=== PATIENT | female | born 1965 | race Hispanic/Latino ===

== ENCOUNTER → 2025-05-13 | Day surgery (SDC) | payer OTHER ==
[~2025-05-13] MED LIST: ACTOS15 MG PO; DEXAMETHASONE SOD PHOS INJ 4 MG/ML SDV ONE; HYOSCYAMINE SULFATE 0.5 MG/ML INJ ONE; LIDOCAINE HCL 2% LOCAL INJ 5 ML SDV VIAL INJ ONE; METFORMIN HCL500 MG PO; ONDANSETRON HCL INJ 2MG/ML 2ML 2 MG/ML VIAL ONE; PROPOFOL IV EMULSION 10 MG/ML 20 ML VIAL ONE
[2025-05-13] MEDS: LACTATED RINGER'S 1,000 ML ONE (07:52)
[2025-05-13 09:40] VITALS: TEMP 98.2
[2025-05-13 10:25] VITALS: BP 119/82; PULSE 90; RESP 16; O2SAT 96
== END | disposition home or self-care (01) ==
LOC: OR 07:03
PROVIDERS: ATTEND Internal Medicine Gastroenterology
DX: Z12.11 Encounter for screening for malignant neoplasm of colon (principal); D12.0 Benign neoplasm of cecum; D12.2 Benign neoplasm of ascending colon; K57.30 Diverticulosis of large intestine without perforation or abscess without bleeding; K58.9 Irritable bowel syndrome, unspecified; K64.8 Other hemorrhoids; K21.9 Gastro-esophageal reflux disease without esophagitis; I10 Essential (primary) hypertension; E11.9 Type 2 diabetes mellitus without complications; M06.9 Rheumatoid arthritis, unspecified; Z01.810 Encounter for preprocedural cardiovascular examination; Z79.84 Long term (current) use of oral hypoglycemic drugs
CPT/HCPCS: 36415; 45385; 82948; 93005; J1100; J1980; J2003; J2405; J2704; J7121; 45378